=== PATIENT | female | born 1960 | race Caucasian/White ===

== ENCOUNTER → 2017-03-02 | Day surgery (SDC) | payer OTHER ==
[2017-03-02 08:43] LABS: HCT 46.1 % (37.0-47.0); HGB 15.7 g/dl (12.5-16.0); MCH 31.1 pg (25.0-31.0); MCHC 34.1 g/dL (32.0-36.0); MCV 91.3 fL (78.0-100.0); MPV 10.6 fL (6.0-9.5); RBC 5.05 M/uL (4.20-5.40); WBC 8.3 K/uL (4.0-10.5)
[2017-03-02 08:59] LABS: ALBUMIN 4.6 g/dL (3.5-5.0); BILIRUBIN - TOTAL 0.6 mg/dL (0.1-1.0); CREATININE 0.7 mg/dL (0.5-1.0); GLOBULIN (CALCULATION) 2.6 g/dL (2.2-4.2); POTASSIUM 3.8 mmol/L (3.5-5.1); TOTAL PROTEIN 7.2 g/dL (6.4-8.3)
== END | disposition home or self-care (01) ==
LOC: FAS 08:27
PROVIDERS: Surgery
DX: Z12.11 Encounter for screening for malignant neoplasm of colon (principal); K57.30 Diverticulosis of large intestine without perforation or abscess without bleeding; E03.9 Hypothyroidism, unspecified; I10 Essential (primary) hypertension; F17.210 Nicotine dependence, cigarettes, uncomplicated; Z88.5 Allergy status to narcotic agent; Z79.899 Other long term (current) drug therapy; Z90.49 Acquired absence of other specified parts of digestive tract; Z98.890 Other specified postprocedural states; M19.90 Unspecified osteoarthritis, unspecified site; F32.9 Major depressive disorder, single episode, unspecified; E78.5 Hyperlipidemia, unspecified; Z90.710 Acquired absence of both cervix and uterus
CPT/HCPCS: 36415; 80053; J2704

== ENCOUNTER 2021-10-12 01:42 | Emergency (ER) | payer OTHER ==
[~2021-10-12 01:42] MED LIST: CELEBREX 200MG200 MG PO; CRESTOR5 MG PO; DICLOFENAC SODI75 MG PO; FLEXERIL10 MG PO; GABAPENTIN PO; HYDROCODONE-APA1 TAB PO; LACTULOSE10 G/15 ML PO; LAMICTAL PO; LEVOTHYROXINE PO; LYRICA25 MG PO; MELOXICAM15 MG PO; NAPROXEN500 MG PO; NORCO 5-325 TA1 EAC1 PO; NORCO 5-325 TA1 EACH PO; NORCO 5/3251 EACH PO; PRISTIQ50 MG PO; ZYPREXA PO
[2021-10-12] MEDS ORDERED: NORCO 5-325 TA1 EACH PO (04:32)
== END 2021-10-12 06:50 | disposition home or self-care (01) ==
LOC: FER 01:42
DX: S92.355A Nondisplaced fracture of fifth metatarsal bone, left foot, initial encounter for closed fracture (principal); M79.89 Other specified soft tissue disorders; Z88.5 Allergy status to narcotic agent; W19.XXXA Unspecified fall, initial encounter; Y93.01 Activity, walking, marching and hiking; Y92.008 Other place in unspecified non-institutional (private) residence as the place of occurrence of the external cause
CPT/HCPCS: 73600; 73630